=== PATIENT | female | born 1945 | race Caucasian/White ===

== ENCOUNTER → 2016-11-01 | Outpatient (CLI) | payer OTHER ==
[~2016-11-01] MED LIST: ALBUTEROL2.5 MG/0.5 INH; ALVESCO6.1 GM; ASPIR 8181 MG PO; CEFDINIR300 MG PO; CEFTIN 250250 MG/52 PO; IPRATROPIU0.2 MG/1 M IH; NORVASC5 MG PO; PHENERGAN 25 MG25 M1 PO; PREDNISONE 20 M20 MG PO; PROTONIX40 M4 PO; PULMICORT0.5 MG/21 INH; REGLAN 10 MG TA10 MG PO; TENORMIN25 MG PO; TESSALON PERLE100 MG PO; ZOCOR20 MG PO
== END ==
LOC: RAD 12:56
DX: R05 Cough (principal); R06.00 Dyspnea, unspecified

== ENCOUNTER → 2016-11-08 | Outpatient (CLI) | payer OTHER | LOC: RAD 08:35 | DX: J69.0 Pneumonitis due to inhalation of food and vomit (principal) ==

== ENCOUNTER → 2016-12-31 | Outpatient (CLI) | payer OTHER | LOC: CAT 09:01 | DX: R91.1 Solitary pulmonary nodule (principal) ==

== ENCOUNTER → 2017-05-28 | Outpatient (CLI) | payer OTHER | LOC: RAD 12:26 | DX: J98.11 Atelectasis (principal) ==